=== PATIENT | male | born 1980 | race Caucasian/White ===

== ENCOUNTER 2019-07-13 08:06 | Outpatient (RCR) | payer OTHER, SELFPAY ==
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
--- NOTE | 2019-07-22 11:18 | PCPTNOTE ---
Patient called & cancelled scheduled appointment this date due to illness.[ ]
--- NOTE | 2019-07-24 08:25 | PCPTNOTE ---
Patient called & cancelled scheduled appointment this date due to illness.[ ]
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
--- NOTE | 2019-08-10 15:23 | PCPTNOTE ---
PHYSICAL THERAPY DISCHARGE NOTE Admitting Provider: Attending Provider: PHYSICIAN NOT ON STAFF Patient:Gómez Minaya Date of :1980 Terrance has not returned for any further treatments since 07/13/2019 which was his initial evaluation. He then cancelled his next 2 appointments and has not called to schedule any further appointments, therefore he will be discharged from physical therapy at this time. Thank you for referring Terrance [facility]. Please review, sign, date and return this discharge summary JARED. I have been updated about Terrance's current status and I agree with discharge from the above service at this time. Referring Physician Date
== END 2019-10-11 23:59 | disposition home or self-care (01) ==
LOC: ANHHIPT 08:06
PROVIDERS: PCP Internal Medicine
DX: M54.2 Cervicalgia (principal); M54.6 Pain in thoracic spine
CPT/HCPCS: 97161

== ENCOUNTER 2019-11-13 12:44 | Emergency (ER) | payer OTHER, SELFPAY ==
[2019-11-13] VITALS (7 sets, daily range): BP systolic 103–125; BP diastolic 54–90; PULSE 64–86; RESP 10–29; TEMP 36.6–36.7; O2SAT 98–100
[2019-11-13] MEDS: FAMOTIDINE 20 MG/2 ML VIAL IV PUSH (13:20)
[2019-11-13 13:33] LABS: Basophils Percent Auto 0.4 % (0.2-1.2); Eosinophils Percent Auto 0.5 % (0-4.4); Hematocrit 39.2 % (42.0-52.0); Hemoglobin 14.4 g/dL (14.0-18.0); Immature Granulocyte Absolute 0.02 K/mm3 (0.00-0.031); Immature Granulocyte Percent A 0.2 % (0-0.5); Lymphocytes Absolute Auto 1.37 K/mm3 (0.9-3.2); Lymphocytes Percent Auto 16.8 % (18.3-44.2); Mean Corpuscular HGB Conc 36.7 g/dl (32-36); Mean Corpuscular Hemoglobin 31.2 pg (26-34); Mean Corpuscular Volume 84.8 fl (80-100); Mean Platelet Volume 8.8 fl (7.4-10.4); Monocytes Absolute Auto 0.5 K/mm3 (0.1-0.6); Monocytes Percent Auto 6.1 % (2.6-8.5); Neutrophils Absolute Auto 6.2 K/mm3 (1.3-6.7); Platelet Count Result 185 k/mm3 (150-375); Red Blood Count 4.62 M/mm3 (4.6-6.20); Red Cell Distribution Width 12.4 % (11.5-14.5); White Blood Count 8.2 K/mm3 (4.5-10.0)
[2019-11-13] MEDS: LORAZEPAM INJ 2 MG/ML VIAL 1 MG IV PUSH (13:37)
--- NOTE | 2019-11-13 13:37 | PC.NURSE ---
Patient given urinal and has call light. He is instructed to call staff when he has to urinate. He is instructed that he is a fall risk and not to get up or out of bed without nursing staff assistance.
[2019-11-13 13:46] LABS: Alanine Aminotransferase 26 U/L (4-50); Albumin Level 4.8 g/dL (3.5-5.1); Alkaline Phosphatase 56 U/L (38-126); Aspartate Amino Transferase 35 U/L (17-59); Bilirubin,Total 0.6 mg/dL (0.2-1.3); Blood Urea Nitrogen 9 mg/dL (9-20); Calcium 9.6 mg/dL (8.4-10.2); Carbon Dioxide 24 mmol/L (22-30); Chloride 94 mmol/L (98-107); Estimated CRCL calculation 143 ml/min; Estimated Glomerular Filt Rate > 60; Glucose 135 mg/dL (75-110); Potassium 4.2 mmol/L (3.4-5.0); Sodium 129 mmol/L (137-145)
[2019-11-13 13:57] LABS: Lipase < 10 U/L (23-300)
[2019-11-13 14:39] LABS: Add Urine Microscopic? YES; Appearance Urine Clear (Clear); Bacteria Urine Trace /hpf; Bilirubin Urine Negative (Negative); Blood Urine Negative (Negative); Color Urine Yellow (Yellow); Glucose Urine UA Negative (Negative); Ketones Urine Trace mg/dL (Negative); Leukocyte Esterase Ur Negative LEU/UL (Negative); Mucus Urine Rare /lpf; Nitrate Urine Negative (Negative); Protein Urine Negative (Negative); RBC Urine 0-2 /hpf (0-2); Specific Grav Ur 1.011 (1.001-1.035); Urobilinogen Urine Negative mg/dL (<2.0); WBC Urine 0-3 /hpf
--- NOTE | 2019-11-13 14:40 | ED.GENADULT ---
HPI - General Adult General Chief complaint: Unspecified Stated complaint: etoh withdrawal Time Seen by Provider: 11/13/19 12:48 Source: patient Mode of arrival: ambulatory Limitations: no limitations History of Present Illness HPI narrative: Patient is a 39-year-old male who presents to emergency department for evaluation of feeling like he is going through withdrawal patient drank last night patient had 2 bottles of wine yesterday was incarcerated overnight due to disorderly conduct. Patient was released came to the emergency department notes feeling anxious but denies other complaints denies any injury or trauma patient notes that he would like to seek treatment but has continued to consume alcohol. Patient also notes marijuana use. On arrival patient in no pain resting comfortably in the room Related Data Home Medications Medication Instructions Recorded Confirmed clonazepam 11/13/19 dextroamphetamine-amphetamine 11/13/19 escitalopram oxalate mg 11/13/19 halobetasol propionate TOPICAL 11/13/19 lidocaine 11/13/19 trazodone 11/13/19 Allergies Allergy/AdvReac Type Severity Reaction Status Date / Time antipsychotics AdvReac Other Uncoded 11/13/19 13:30 Review of Systems Review of Systems: All systems reviewed & are unremarkable except as noted in HPI and below PMFSH Past Medical History Medical History (Updated 11/13/19 @ 14:48 by Natanael Zavaleta PA-C) Anxiety Social History Social History (Updated 11/13/19 @ 14:44 by Natanael Zavaleta PA-C) Smoking status: Current every day smoker Alcohol intake: current Gender identity (if verbalized by the patient): Male Exam Narrative: Exam Narrative: GENERAL: Well-appearing, well-nourished, and in no acute distress. HEAD: Normocephalic, atraumatic. EYES: PERRLA and EOMI. ENT: Nares clear, no rhinorrhea or epistaxis. Mucous membranes moist. CHEST: Clear to auscultation. No respiratory distress. No wheezes rales or rhonchi HEART: Regular rate and rhythm. No murmur heard. Normal peripheral pulses. ABDOMEN: Soft, nontender, nondistended EXTREMITIES: Normal range of motion. No edema. SKIN: Warm, dry, no rash. NEURO: No focal deficits. Alert and oriented x3. Cranial nerves II through XII grossly intact. Normal speech and gait PSYCH: Normal mood and affect. Course Course Emergency Course: Patient in the room at this time in no distress was hydrated given a banana bag resting comfortably will be discharged home provided with a a referral advised to find help through primary care as well patient agreeing to do so hemodynamically stable provided with reasons to return Vital Signs Vital signs: Vital Signs Temperature 98.0 F 11/13/19 12:58 Pulse Rate 71 11/13/19 12:58 Respiratory Rate 10 L 11/13/19 12:58 Blood Pressure 125/90 11/13/19 12:58 Pulse Oximetry 98 11/13/19 12:58 Temperature 98.0 F 11/13/19 12:58 Pulse Rate 78 11/13/19 13:43 Respiratory Rate 12 11/13/19 13:43 Blood Pressure 125/90 11/13/19 12:58 Pulse Oximetry 98 11/13/19 12:58 Medical Decision Making MDM Narrative Medical decision making narrative: Patient in the room in no distress was hydrated given medications in the emergency department no high risk changes in the blood work or imaging afebrile nontoxic-appearing no distress felt appropriate for outpatient reevaluation mother will help find placement. Patient at this time in the room in no distress. Patient with normal gait no high risk changes in the blood work or imaging hemodynamically stable Vital Signs Vital Signs: Vital Signs Temperature 98.0 F 11/13/19 12:58 Pulse Rate 71 11/13/19 12:58 Respiratory Rate 10 L 11/13/19 12:58 Blood Pressure 125/90 11/13/19 12:58 Pulse Oximetry 98 11/13/19 12:58 Temperature 98.0 F 11/13/19 12:58 Pulse Rate 78 11/13/19 13:43 Respiratory Rate 12 11/13/19 13:43 Blood Pressure 125/90 11/13/19 12:58 Pulse Oximetry 98 06
== END 2019-11-13 16:48 | disposition home or self-care (01) ==
PROVIDERS: Emergency Medicine Emergency Medical Services; Emergency Provider Emergency Medicine; PCP Family Medicine
DX: F41.9 Anxiety disorder, unspecified (principal); F10.10 Alcohol abuse, uncomplicated; F17.200 Nicotine dependence, unspecified, uncomplicated; Y90.9 Presence of alcohol in blood, level not specified
CPT/HCPCS: 36415; 80053; 81001; 83690; 85025; 96365; 96375; 99284; J2060; J3411; J3475; J7120

== ENCOUNTER 2019-11-27 18:53 | Emergency (ER) | payer OTHER, SELFPAY ==
[2019-11-27] VITALS (17 sets, daily range): BP systolic 119–139; BP diastolic 72–113; PULSE 69–106; RESP 12–18; TEMP 36.9; O2SAT 97–100
[2019-11-27 19:29] LABS: Basophils Percent Auto 0.3 % (0.2-1.2); Eosinophils Absolute Auto 0.2 K/mm3 (0-0.3); Eosinophils Percent Auto 2.3 % (0-4.4); Hematocrit 41.7 % (42.0-52.0); Hemoglobin 15.4 g/dL (14.0-18.0); Immature Granulocyte Absolute 0.03 K/mm3 (0.00-0.031); Immature Granulocyte Percent A 0.4 % (0-0.5); Lymphocytes Absolute Auto 4.06 K/mm3 (0.9-3.2); Lymphocytes Percent Auto 52.5 % (18.3-44.2); Mean Corpuscular HGB Conc 36.9 g/dl (32-36); Mean Corpuscular Hemoglobin 31.3 pg (26-34); Mean Corpuscular Volume 84.8 fl (80-100); Mean Platelet Volume 8.2 fl (7.4-10.4); Monocytes Absolute Auto 0.3 K/mm3 (0.1-0.6); Monocytes Percent Auto 4.1 % (2.6-8.5); Neutrophils Absolute Auto 3.1 K/mm3 (1.3-6.7); Neutrophils Percent Auto 40.4 % (45.5-73.1); Platelet Count Result 209 k/mm3 (150-375); Red Blood Count 4.92 M/mm3 (4.6-6.20); Red Cell Distribution Width 12.7 % (11.5-14.5); White Blood Count 7.7 K/mm3 (4.5-10.0)
[2019-11-27 19:35] LABS: Alanine Aminotransferase 32 U/L (4-50); Albumin Level 5.1 g/dL (3.5-5.1); Alkaline Phosphatase 66 U/L (38-126); Aspartate Amino Transferase 59 U/L (17-59); Bilirubin,Total 0.4 mg/dL (0.2-1.3); Blood Urea Nitrogen 4 mg/dL (9-20); Calcium 9.7 mg/dL (8.4-10.2); Carbon Dioxide 28 mmol/L (22-30); Chloride 100 mmol/L (98-107); Estimated CRCL calculation 108 ml/min; Estimated Glomerular Filt Rate > 60; Glucose 147 mg/dL (75-110); Potassium 4.7 mmol/L (3.4-5.0); Sodium 139 mmol/L (137-145)
[2019-11-27 19:36] LABS: Ethanol 260 mg/dL (<10)
[2019-11-27 19:44] LABS: Add Urine Microscopic? NO; Appearance Urine Clear (Clear); Bilirubin Urine Negative (Negative); Blood Urine Negative (Negative); Color Urine Colorless (Yellow); Glucose Urine UA Negative (Negative); Ketones Urine Negative (Negative); Leukocyte Esterase Ur Negative LEU/UL (Negative); Nitrate Urine Negative (Negative); Protein Urine Negative (Negative); Specific Grav Ur 1.005 (1.001-1.035); Urobilinogen Urine Negative mg/dL (<2.0)
--- NOTE | 2019-11-27 19:46 | ED.ALCOHOL ---
HPI - Alcohol General Chief Complaint: Alcohol Stated Complaint: eTOH/si Time Seen by Provider: 11/27/19 19:29 Source: patient Mode of arrival: EMS Limitations: no limitations History of Present Illness HPI narrative: This patient is a 39 year old male with history of alcohol abuse who presents for alcohol detox. Patient states he drank 6 bottles of beer prior to arrival. He states I have come to get help because I do not want to drink alcohol. He denies being suicidal or homicidal. Chronic alcohol use: Yes Previous visits for alcohol intoxication: Yes Related Data Home Medications Medication Instructions Recorded Confirmed clonazepam 11/13/19 dextroamphetamine-amphetamine 11/13/19 escitalopram oxalate mg 11/13/19 halobetasol propionate TOPICAL 11/13/19 lidocaine 11/13/19 trazodone 11/13/19 Allergies Allergy/AdvReac Type Severity Reaction Status Date / Time antipsychotics AdvReac Other Uncoded 11/27/19 19:11 Review of Systems Review of Systems: All systems reviewed & are unremarkable except as noted in HPI and below Constitutional: Constitutional: Denies chills, Denies fever(s) and Denies weakness Cardiovascular: Cardiovascular: Denies chest pain Respiratory: Respiratory: Denies cough, Denies dyspnea and Denies wheezing Gastrointestinal: Gastrointestinal: Denies abdominal pain, Denies nausea and Denies vomiting Neurologic: Denies focal weakness PMFSH Past Medical History Medical History (Updated 11/28/19 @ 03:35 by Maye Reyez MD) Anxiety Social History Social History (Updated 11/13/19 @ 14:44 by Natanael Zavaleta PA-C) Smoking status: Current every day smoker Alcohol intake: current Gender identity (if verbalized by the patient): Male Exam Narrative: Exam Narrative: GENERAL: Well-appearing, well-nourished, and in no acute distress. mild slurred speech HEAD: Normocephalic, atraumatic EYES: PERRLA and EOMI, conjunctiva clear without discharge EARS: TM's clear bilaterally without erythema or dullness NOSE: Nares clear, no rhinorrhea or epistaxis THROAT:Mucous membranes moist, Oropharynx normal without erythema, exudate, peritonsillar swelling or fluctuance NECK: Supple, without lymphadenopathy or mass RESPIRATORY: No respiratory distress, Airway patent, Respirations non-labored, Clear to auscultation without rales, rhonchi or wheeze HEART: Regular rate and rhythm. No murmur heard. Normal peripheral pulses. ABDOMEN: Soft, nontender, nondistended, normal active bowel sounds. No masses. No rebound or guarding, No organomegaly. EXTREMITIES: No edema, normal strength with full range of motion. SKIN: Warm, dry, normal color without rash NEURO: Alert and oriented x3. CN 2-12 grossly intact. No focal deficits. PSYCH: Normal mood and affect. Course Reevaluation(s) Reevaluation #1: Patient is walking around the room. He does not appear tremulous and appear to be going through withdrawal. He does reports anxiety. He is not suicidal. He states he takes clonazepam at home but he has been out of it for 2 weeks. His alcohol was 114 2 two hours ago so it is likely below 80. He is clinically sober as well. He will be discharged Date: 11/28/19 Time: 03:34 Vital Signs Vital signs: Vital Signs Temperature 98.5 F 11/27/19 19:00 Pulse Rate 106 H 11/27/19 19:00 Respiratory Rate 18 11/27/19 19:00 Blood Pressure 139/113 H 11/27/19 19:00 Pulse Oximetry 98 11/27/19 19:00 Temperature 98.1 F 11/28/19 02:30 Pulse Rate 86 11/28/19 03:50 Respiratory Rate 18 11/28/19 03:50 Blood Pressure 136/98 H 11/28/19 01:45 Pulse Oximetry 99 11/28/19 03:50 MDM - Alcohol Lab Data Attestation: I reviewed the patient's lab results. Result diagrams: 11/27/19 19:14 11/27/19 19:14 Labs: Lab Results 11/27/19 11/27/19 11/27/19 Range/Units 19:14 19:14 19:14 WBC 7.7 (4.5-10.0) K/mm3 RBC 4.92 (4.6-6.20) M/m
--- NOTE | 2019-11-27 19:52 | PC.NURSE ---
Per pt. okay to tell his mother he is here; called number, left message.
[2019-11-27 19:56] LABS: Amphetamine Screen Urine Negative (Negative); Barbiturate Screen Urine Negative (Negative); Benzodiazepines Screen Urine Positive (Negative); Cannabinoid Screen Urine Positive (Negative); Cocaine Screen Urine Negative (Negative); Methadone Screen Urine Negative (Negative); Opiate Screen Urine Negative (Negative); Phencyclidine Screen Urine Negative (Negative)
[2019-11-27 20:06] LABS: Thyroid Stimulating Hormone 0.645 uIU/mL (0.465-4.680)
--- NOTE | 2019-11-27 20:17 | PC.NURSE ---
Contacted pharmacy in regards to patients IV fluids. She stated she will send it up shortly.
[2019-11-28] VITALS (12 sets, daily range): BP systolic 112–136; BP diastolic 77–98; PULSE 79–95; RESP 12–20; TEMP 36.6–36.7; O2SAT 97–100
[2019-11-28] MEDS: LORAZEPAM 1 MG TABLET PO (01:05)
[2019-11-28 01:58] LABS: Ethanol 114 mg/dL (<10)
--- NOTE | 2019-11-28 02:15 | PC.NURSE ---
Pt on phone with mother to come pcik him up. Mother does not answer. pt states I can just stay here as long as I want. I will stay here as long as I want. I plan on using up all of these resources as long as I want.
--- NOTE | 2019-11-28 02:59 | PC.NURSE ---
Patient talking nonstop to sitter at bedside. Patient a/ox3, talking about multiple different subjects and topics, patient frequently requesting more ativan, stating I take more than that at home. That's not going to do anything, I'm going to need more.
== END 2019-11-28 03:55 | disposition home or self-care (01) ==
PROVIDERS: Emergency Provider General Practice
DX: F10.129 Alcohol abuse with intoxication, unspecified (principal); F41.9 Anxiety disorder, unspecified; F17.200 Nicotine dependence, unspecified, uncomplicated; Y90.8 Blood alcohol level of 240 mg/100 ml or more
CPT/HCPCS: 36415; 80053; 80307; 81003; 84443; 85025; 96365; 96366; 99284; A9270; J3411; J3475; J7121

== ENCOUNTER 2019-12-05 19:26 | Emergency (ER) | payer OTHER, SELFPAY ==
--- NOTE | ~2019-12-05 | XR_ITS ---
EXAMINATION: XR chest 2V DATE: 12/05/2019 20:25 INDICATION: Chest pain and a tiny TECHNIQUE: PA and lateral views of the chest are obtained. COMPARISON: 08/01/2016 FINDINGS: The lungs are free of acute opacities. There is no pleural effusion or pneumothorax. The ca rdiomediastinal silhouette is normal. The visualized bones and soft tissues are unremarkable. IMPRESSION: 1. No acute cardiopulmonary abnormality. Reviewed, dictated and finalized at location A.
[2019-12-05 19:24] VITALS: BP 155/111; PULSE 78; RESP 16; TEMP 36.3; O2SAT 98
--- NOTE | 2019-12-05 19:42 | ECG_ITS ---
Measurements Intervals [place] Rate: 65 P: 67 AK: 154 QRS: 31 QRSD: 88 T: 66 QT: 363 QTc: 378 Interpretive Statements SINUS RHYTHM NORMAL ECG Electronically Signed On 12-06-2019 7:51:48 CDT by Kevin Cartwright D.O.
--- NOTE | 2019-12-05 19:49 | ED.ALCOHOL ---
HPI - Alcohol General Chief Complaint: Alcohol Stated Complaint: ETOH withdrawl Time Seen by Provider: 12/05/19 19:44 Source: RN notes reviewed History of Present Illness HPI narrative: Patient presents to emergency department from home for alcohol withdrawal. Patient states that he has been drinking 16-24 beers a day. States that he is wanting to stop drinking presented to the emergency department for help with alcohol detox. Patient states his last drink was at 6 AM this morning. States he has been having some mild sweats but denies any fevers or chills nausea or vomiting. Patient states he has had some mild intermittent epigastric pain going into his lower mid chest is described as a burning today but denies any other symptoms Related Data Home Medications Medication Instructions Recorded Confirmed clonazepam 11/13/19 dextroamphetamine-amphetamine 11/13/19 escitalopram oxalate mg 11/13/19 halobetasol propionate TOPICAL 11/13/19 lidocaine 11/13/19 trazodone 11/13/19 Allergies Allergy/AdvReac Type Severity Reaction Status Date / Time antipsychotics AdvReac Other Uncoded 11/27/19 19:11 Review of Systems Review of Systems: Narrative: Gen.: Denies fevers or chills Eyes: Denies eye pain or visual change ENT: Denies congestion Respiratory: Denies shortness of breath or cough CV: Reports lower midsternal chest pain no palpitations GI: Denies abdominal pain nausea, emesis or diarrhea Musculoskeletal: Denies back pain or muscle pain Neuro: Denies numbness, tingling, weakness or focal weakness Skin: Denies rash Except as documented, all other systems reviewed and negative [facility] Past Medical History Medical History Anxiety Social History Social History Smoking status: Current every day smoker Alcohol intake: current Gender identity (if verbalized by the patient): Male Exam Narrative: Exam Narrative: APPEARANCE: No acute distress, nontoxic, resting in bed EYES: EOMI HEENT: Normocephalic, atraumatic, OMM RESPIRATORY: No respiratory distress Clear to auscultation bilaterally with no rhonchi wheezing or rales. CARDIOVASCULAR: Regular rate and rhythm without murmurs rubs or gallops. ABDOMINAL: Soft, nondistended, tender palpation epigastric region, no tenderness right upper quadrant, left upper quadrant, right lower quadrant left lower quadrant, no rebound or guarding MUSCULOSKELETAl: Moves all extremities. No clubbing, cyanosis or edema. NEURO: Awake and alert. Following commands, speech normal, no focal deficits SKIN:: Warm, dry. No rashes lesions or abrasions PSYCHIATRIC: Normal affect/mood, Course Course Emergency Course: States chest pain is resolved following GI cocktail Extensive discussion with patient regarding alcohol withdrawal. Patient states he has been in detox before states he is interested in detox again. The patient was given list of detox facilities. We discussed the use of Librium as an outpatient and patient has used it before and is in agreement with plan for discharge with follow-up with detox patient was also be given a PCP as an outpatient Discussed with patient results of workup and diagnosis. Discussed need for follow-up with primary care, proper use of medication, and reasons to return to the emergency department. Patient understands and agrees to current treatment plan Vital Signs Vital signs: Vital Signs Temperature 97.4 F L 12/05/19 19:24 Pulse Rate 78 12/05/19 19:24 Respiratory Rate 16 12/05/19 19:24 Blood Pressure 155/111 H 12/05/19 19:24 Pulse Oximetry 98 12/05/19 19:24 Temperature 97.4 F L 12/05/19 19:24 Pulse Rate 65 12/05/19 22:45 Respiratory Rate 16 12/05/19 22:45 Blood Pressure 138/96 H 12/05/19 22:45 Pulse Oximetry 100 12/05/19 22:45 MDM - Alcohol MDM Narrative Medical decision making narrative: Patient's EKGs an
[2019-12-05] MEDS: SODIUM CHLORIDE 0.9% IV 1,000 ML 999 ML IV CONT (19:53)
[2019-12-05 19:54] LABS: Basophils Percent Auto 0.3 % (0.2-1.2); Eosinophils Absolute Auto 0.1 K/mm3 (0-0.3); Hemoglobin 15.2 g/dL (14.0-18.0); Immature Granulocyte Absolute 0.04 K/mm3 (0.00-0.031); Immature Granulocyte Percent A 0.4 % (0-0.5); Lymphocytes Absolute Auto 2.96 K/mm3 (0.9-3.2); Lymphocytes Percent Auto 31.6 % (18.3-44.2); Mean Corpuscular HGB Conc 36.2 g/dl (32-36); Mean Corpuscular Hemoglobin 31.3 pg (26-34); Mean Corpuscular Volume 86.6 fl (80-100); Mean Platelet Volume 8.9 fl (7.4-10.4); Monocytes Absolute Auto 0.6 K/mm3 (0.1-0.6); Monocytes Percent Auto 6.6 % (2.6-8.5); Neutrophils Absolute Auto 5.6 K/mm3 (1.3-6.7); Neutrophils Percent Auto 60.1 % (45.5-73.1); Platelet Count Result 207 k/mm3 (150-375); Red Blood Count 4.85 M/mm3 (4.6-6.20); Red Cell Distribution Width 13.2 % (11.5-14.5); White Blood Count 9.4 K/mm3 (4.5-10.0)
[2019-12-05 19:57] VITALS: BP 138/98; PULSE 65; RESP 18; O2SAT 98
[2019-12-05 20:04] LABS: Partial Thromboplastin Time 22.4 SECONDS (22.3-36.8)
[2019-12-05 20:07] LABS: Ethanol < 10 mg/dL (<10)
[2019-12-05 20:08] LABS: Blood Urea Nitrogen 10 mg/dL (9-20); Calcium 9.6 mg/dL (8.4-10.2); Carbon Dioxide 25 mmol/L (22-30); Chloride 100 mmol/L (98-107); Estimated CRCL calculation 118 ml/min; Estimated Glomerular Filt Rate > 60; Glucose 158 mg/dL (75-110); Sodium 133 mmol/L (137-145)
[2019-12-05 20:10] LABS: Prothrombin Time 13.1 Seconds (11.1-14.7)
[2019-12-05 20:21] LABS: Troponin I < 0.012 ng/mL (0.000-0.034)
--- NOTE | 2019-12-05 20:37 | PC.NURSE ---
Patient asked again for urine, states he will try again soon.
[2019-12-05 21:08] LABS: Alanine Aminotransferase 34 U/L (4-50); Albumin Level 4.8 g/dL (3.5-5.1); Alkaline Phosphatase 76 U/L (38-126); Aspartate Amino Transferase 42 U/L (17-59); Bilirubin,Total 0.6 mg/dL (0.2-1.3)
[2019-12-05] MEDS: SODIUM CHLORIDE 0.9% IV 1,000 ML 999 ML (21:23)
[2019-12-05] MEDS: THIAMINE HCL 200 MG/2 ML VIAL 100 MG IV PUSH (21:23)
[2019-12-05 21:30] VITALS: BP 131/98; PULSE 66; RESP 14; O2SAT 99
[2019-12-05 21:49] LABS: Amphetamine Screen Urine Negative (Negative); Barbiturate Screen Urine Negative (Negative); Benzodiazepines Screen Urine Negative (Negative); Cannabinoid Screen Urine Positive (Negative); Cocaine Screen Urine Negative (Negative); Methadone Screen Urine Negative (Negative); Opiate Screen Urine Negative (Negative); Phencyclidine Screen Urine Negative (Negative)
[2019-12-05 22:45] VITALS: BP 138/96; PULSE 65; RESP 16; O2SAT 100
[2019-12-05 23:31] LABS: Troponin I < 0.012 ng/mL (0.000-0.034)
[2019-12-06 01:11] VITALS: BP 132/74; PULSE 77; RESP 18; O2SAT 98
== END 2019-12-06 01:18 | disposition home or self-care (01) ==
PROVIDERS: Emergency Provider Emergency Medicine
DX: F10.10 Alcohol abuse, uncomplicated (principal); Y90.0 Blood alcohol level of less than 20 mg/100 ml; F41.9 Anxiety disorder, unspecified
CPT/HCPCS: 36415; 51701; 71046; 80048; 80076; 80307; 84484; 85025; 85610; 85730; 93005; 96361; 96374; 99284; A9270; J3411; J7030

== ENCOUNTER 2020-02-20 16:20 | Emergency (ER) | payer OTHER, SELFPAY ==
[2020-02-20 16:36] VITALS: BP 108/73; PULSE 76; RESP 18; TEMP 36.7; O2SAT 97
[2020-02-20 17:30] LABS: Basophils Absolute Auto 0.1 K/mm3 (0.0-0.1); Basophils Percent Auto 0.6 % (0.2-1.2); Eosinophils Absolute Auto 0.2 K/mm3 (0-0.3); Eosinophils Percent Auto 2.7 % (0-4.4); Hematocrit 42.4 % (42.0-52.0); Hemoglobin 15.2 g/dL (14.0-18.0); Immature Granulocyte Absolute 0.03 K/mm3 (0.00-0.031); Immature Granulocyte Percent A 0.4 % (0-0.5); Lymphocytes Absolute Auto 3.85 K/mm3 (0.9-3.2); Lymphocytes Percent Auto 49.9 % (18.3-44.2); Mean Corpuscular HGB Conc 35.8 g/dl (32-36); Mean Corpuscular Hemoglobin 30.5 pg (26-34); Mean Corpuscular Volume 85.1 fl (80-100); Mean Platelet Volume 8.8 fl (7.4-10.4); Monocytes Absolute Auto 0.4 K/mm3 (0.1-0.6); Monocytes Percent Auto 5.4 % (2.6-8.5); Neutrophils Absolute Auto 3.2 K/mm3 (1.3-6.7); Platelet Count Result 203 k/mm3 (150-375); Red Blood Count 4.98 M/mm3 (4.6-6.20); Red Cell Distribution Width 11.9 % (11.5-14.5); White Blood Count 7.7 K/mm3 (4.5-10.0)
[2020-02-20 17:33] LABS: Add Urine Microscopic? YES; Appearance Urine Clear (Clear); Bilirubin Urine Negative (Negative); Blood Urine Negative (Negative); Color Urine Colorless (Yellow); Glucose Urine UA 3+ mg/dL (Negative); Ketones Urine Negative (Negative); Leukocyte Esterase Ur Negative LEU/UL (Negative); Nitrate Urine Negative (Negative); Protein Urine Negative (Negative); Specific Grav Ur 1.006 (1.001-1.035); Urobilinogen Urine Negative mg/dL (<2.0); WBC Urine 0-3 /hpf
[2020-02-20 17:42] LABS: Lipase 12 U/L (23-300)
[2020-02-20 17:43] LABS: Alanine Aminotransferase 94 U/L (4-50); Albumin Level 4.6 g/dL (3.5-5.1); Alkaline Phosphatase 73 U/L (38-126); Anion Gap 16 mmol/L (8-16); Aspartate Amino Transferase 34 U/L (17-59); Bilirubin,Total 0.2 mg/dL (0.2-1.3); Blood Urea Nitrogen 6 mg/dL (9-20); Calcium 8.9 mg/dL (8.4-10.2); Carbon Dioxide 19 mmol/L (22-30); Chloride 106 mmol/L (98-107); Estimated CRCL calculation 104 ml/min; Estimated Glomerular Filt Rate > 60; Glucose 299 mg/dL (75-110); Potassium 3.7 mmol/L (3.4-5.0); Sodium 141 mmol/L (137-145)
[2020-02-20 17:46] LABS: Ethanol 276 mg/dL (<10)
[2020-02-20 17:49] LABS: Amphetamine Screen Urine Negative (Negative); Barbiturate Screen Urine Negative (Negative); Benzodiazepines Screen Urine Negative (Negative); Cannabinoid Screen Urine Negative (Negative); Cocaine Screen Urine Negative (Negative); Methadone Screen Urine Negative (Negative); Opiate Screen Urine Negative (Negative); Phencyclidine Screen Urine Negative (Negative)
[2020-02-20 18:15] VITALS: BP 112/73; PULSE 88; RESP 18; O2SAT 99
[2020-02-20 18:24] VITALS: BP 115/75; PULSE 78; RESP 18; O2SAT 97
--- NOTE | 2020-02-20 18:24 | ED.ANXIETY ---
HPI - Anxiety General Chief Complaint: Anxiety Stated Complaint: anxiety Time Seen by Provider: 02/20/20 16:56 History of Present Illness HPI narrative: Patient is a 40-year-old male who presents the ER with reports of anxiety. Reports she has to drink alcohol to quell his anxiety. He would like antianxiety medication for home to take so he does not have to drink alcohol. No suicidal ideation or homicidal ideation. No additional drug use per him. Patient reports he is going to see a psychiatrist in April. Related Data Home Medications Medication Instructions Recorded Confirmed divalproex PO 02/20/20 escitalopram oxalate mg 02/20/20 hydroxyzine HCl 02/20/20 metformin mg 02/20/20 propranolol 02/20/20 Allergies Allergy/AdvReac Type Severity Reaction Status Date / Time antipsychotics AdvReac Other Uncoded 02/20/20 16:56 Review of Systems Review of Systems: All systems reviewed & are unremarkable except as noted in HPI and below Constitutional: Constitutional: Denies chills, Denies fever(s) and Denies weakness ENT: Denies nasal congestion and Denies sore throat Psychiatric: Psychiatric: Reports anxiety, Denies depression, Denies homicidal ideation and Denies suicidal ideation PMFSH Social History Social History Smoking status: Current every day smoker Alcohol intake: current Gender identity (if verbalized by the patient): Male Exam Narrative: Exam Narrative: GENERAL: Intoxicated-appearing, well-nourished, and in no acute distress. HEAD: Normocephalic, atraumatic. EYES: PERRL and EOMI. CHEST: Clear to auscultation. No respiratory distress. HEART: Regular rate and rhythm. Normal peripheral pulses. ABDOMEN: Soft, nontender, nondistended. EXTREMITIES: Normal range of motion. No edema. SKIN: Warm, dry, no rash. NEURO: Alert and oriented x3. PSYCH: Normal mood and affect. Course Vital Signs Vital signs: Vital Signs Temperature 98.0 F 02/20/20 16:36 Pulse Rate 76 02/20/20 16:36 Respiratory Rate 18 02/20/20 16:36 Blood Pressure 108/73 02/20/20 16:36 Pulse Oximetry 97 02/20/20 16:36 Temperature 98.0 F 02/20/20 16:36 Pulse Rate 78 02/20/20 18:24 Respiratory Rate 18 02/20/20 18:24 Blood Pressure 115/75 02/20/20 18:24 Pulse Oximetry 97 02/20/20 18:24 MDM - Anxiety Lab Data Result diagrams: 02/20/20 17:22 02/20/20 17:22 Labs: Lab Results 02/20/20 02/20/20 02/20/20 Range/Units 17:22 17:22 17:22 WBC 7.7 (4.5-10.0) K/mm3 RBC 4.98 (4.6-6.20) M/mm3 Hgb 15.2 (14.0-18.0) g/dL Hct 42.4 (42.0-52.0) % MCV 85.1 (80-100) fl MCH 30.5 (26-34) pg MCHC 35.8 (32-36) g/dl RDW 11.9 (11.5-14.5) % Plt Count 203 (150-375) k/mm3 MPV 8.8 (7.4-10.4) fl Immature Gran % (Auto) 0.4 (0-0.5) % Neut % (Auto) 41.0 L (45.5-73.1) % Lymph % (Auto) 49.9 H (18.3-44.2) % [place] % (Auto) 5.4 (2.6-8.5) % Eos % (Auto) 2.7 (0-4.4) % Baso % (Auto) 0.6 (0.2-1.2) % Lymph # (Auto) 3.85 H (0.9-3.2) K/mm3 [place] # (Auto) 0.4 (0.1-0.6) K/mm3 Eos # (Auto) 0.2 (0-0.3) K/mm3 Baso # (Auto) 0.1 (0.0-0.1) K/mm3 Abs Immat Gran (auto) 0.03 (0.00-0.031) K/mm3 Absolute Neuts (auto) 3.2 (1.3-6.7) K/mm3 Absolute Nucleated RBC 0.0 (0.0-0.012) K/mm3 Nucleated RBC % 0.0 (0.0-0.2) % Sodium 141 (137-145) mmol/L Potassium 3.7 (3.4-5.0) mmol/L Chloride 106 (98-107) mmol/L Carbon Dioxide 19 L (22-30) mmol/L Anion Gap 16 (8-16) mmol/L BUN 6 L (9-20) mg/dL Creatinine 0.80 (0.7-1.3) mg/dL Estim Creat Clear Calc 104 ml/min Estimated GFR > 60 (59 - ) Glucose 299 H (75-110) mg/dL Calcium 8.9 (8.4-10.2) mg/dL Total Bilirubin 0.2 (0.2-1.3) mg/dL AST 34 (17-59) U/L ALT 94 H (4-50) U/L Alkaline Phosphatase 73 (38-126) U/L Total Protein 7.0
== END 2020-02-20 19:12 | disposition home or self-care (01) ==
PROVIDERS: Emergency Provider Emergency Medicine; PCP Family Medicine
DX: F10.129 Alcohol abuse with intoxication, unspecified (principal); Y90.8 Blood alcohol level of 240 mg/100 ml or more; F41.9 Anxiety disorder, unspecified; F17.200 Nicotine dependence, unspecified, uncomplicated
CPT/HCPCS: 36415; 80053; 80307; 81001; 83690; 84443; 85025; 99283

== ENCOUNTER 2021-09-17 10:53 | Emergency (ER) | payer OTHER, SELFPAY ==
[2021-09-17] VITALS (8 sets, daily range): BP systolic 111–135; BP diastolic 71–98; PULSE 71–72; RESP 14–16; TEMP 36.2; O2SAT 94–97
--- NOTE | 2021-09-17 11:28 | ED.ALCOHOL ---
HPI - Alcohol General Chief Complaint: Alcohol Stated Complaint: +ETOH Time Seen by Provider: 09/17/21 11:17 Source: patient History of Present Illness HPI narrative: Patient presents with alcohol intoxication wanting detox. Patient reports longstanding history of alcohol abuse and prior attempts detox he also worked prior withdrawals. He reports he has been drinking very heavily over the past month approximately 1 to 2 pints of hard liquor a day. Today he was unresponsive to his mom she called EMS and was transferred to the ER for evaluation. Patient ports chronic back pain as otherwise no acute complaints. Patient does have a history of diabetes and has been monitoring his blood sugars has not noted any significant change from his baseline over the past few days. Denies any suicidal or homicidal ideation. Related Data Home Medications Medication Instructions Recorded Confirmed divalproex PO 02/20/20 escitalopram oxalate mg 02/20/20 hydroxyzine HCl 02/20/20 metformin mg 02/20/20 propranolol 02/20/20 Allergies Allergy/AdvReac Type Severity Reaction Status Date / Time antipsychotics AdvReac Other Uncoded 02/20/20 16:56 Review of Systems Review of Systems: CONSTITUTIONAL: Denies fever, chills, or sweats. EYES: Denies visual changes, redness, or discharge. ENT: Denies rhinorrhea, congestion, sore throat, or otalgia. CARDIOVASCULAR: Denies chest pain, palpitations, or edema. RESPIRATORY: Denies cough or dyspnea. GASTROINTESTINAL: Denies abdominal pain, nausea, vomiting, or diarrhea. GENITOURINARY: Denies dysuria or hematuria. SKIN: Denies rash or itching. MUSCULOSKELETAL: Denies joint pain, or myalgia. NEUROLOGIC: Denies headache, numbness, dizziness, or weakness. PSYCHIATRIC: Denies anxiety or depression. All systems reviewed & are unremarkable except as noted in HPI and below PMFSH Past Medical History Medical History Alcohol abuse (~09/17/21) Anxiety Social History Social History Smoking status: Current every day smoker Alcohol intake: current Gender identity (if verbalized by the patient): Male Exam Narrative: GENERAL: Well-appearing, well-nourished, and in no acute distress. HEAD: Normocephalic, atraumatic. EYES: PERRLA and EOMI. ENT: Nares clear, no rhinorrhea or epistaxis. Mucous membranes moist. NECK: Supple. No masses. No JVD CHEST: Clear to auscultation. No respiratory distress. No wheezes rales or rhonchi HEART: Regular rate and rhythm. No murmur heard. Normal peripheral pulses. ABDOMEN: Soft, nontender, nondistended, normal active bowel sounds. EXTREMITIES: Normal range of motion. No edema. SKIN: Warm, dry, no rash. NEURO: No focal deficits. Alert and oriented x3. PSYCH: Normal mood and affect. Course Reevaluation(s) Reevaluation #1: Care coordination is assisting with inpatient versus outpatient detox support. Date: 09/17/21 Time: 17:56 Reevaluation #2: Results reviewed with patient patient is comfortable outpatient plan. Attempted multiple facilities for inpatient detox however there is no availability patient given multiple outpatient resources. Patient also given resources for homeless detention as it is family does not want him to return home Date: 09/17/21 Time: 18:32 Vital Signs Vital signs: Vital Signs Temperature 36.2 C L 09/17/21 11:27 Pulse Rate 72 09/17/21 11:27 Respiratory Rate 14 09/17/21 11:27 Blood Pressure 127/83 09/17/21 11:27 Pulse Oximetry 96 09/17/21 11:27 Temperature 36.2 C L 09/17/21 11:27 Pulse Rate 71 09/17/21 18:54 Respiratory Rate 16 09/17/21 18:54 Blood Pressure 128/98 H 09/17/21 18:42 Pulse Oximetry 97 09/17/21 18:42 MDM - Alcohol MDM Narrative Medical decision making narrative: H&P as above, vss, pt looks clinically well, exam reassuring, labs with leukocytosis otherwise clinically unremarkable,
[2021-09-17 11:42] LABS: Basophils Percent Auto 0.2 % (0.2-1.2); Eosinophils Absolute Auto 0.1 K/mm3 (0-0.3); Eosinophils Percent Auto 0.4 % (0-4.4); Hematocrit 45.5 % (42.0-52.0); Hemoglobin 15.9 g/dL (14.0-18.0); Immature Granulocyte Absolute 0.01 K/mm3 (0.00-0.031); Immature Granulocyte Percent A 0.1 % (0-0.5); Lymphocytes Absolute Auto 13.87 K/mm3 (0.9-3.2); Mean Corpuscular HGB Conc 34.9 g/dl (32-36); Mean Corpuscular Hemoglobin 29.5 pg (26-34); Mean Corpuscular Volume 84.4 fl (80-100); Mean Platelet Volume 8.8 fl (7.4-10.4); Monocytes Absolute Auto 0.3 K/mm3 (0.1-0.6); Monocytes Percent Auto 1.7 % (2.6-8.5); Neutrophils Absolute Auto 2.1 K/mm3 (1.3-6.7); Neutrophils Percent Auto 12.6 % (45.5-73.1); Platelet Count Result 78 k/mm3 (150-375); Red Blood Count 5.39 M/mm3 (4.6-6.20); Red Cell Distribution Width 15.8 % (11.5-14.5); White Blood Count 16.3 K/mm3 (4.5-10.0)
[2021-09-17 11:52] LABS: Alanine Aminotransferase 26 U/L (4-50); Albumin Level 4.7 g/dL (3.5-5.1); Alkaline Phosphatase 80 U/L (38-126); Anion Gap 12 mmol/L (8-16); Aspartate Amino Transferase 54 U/L (17-59); Bilirubin,Total 0.5 mg/dL (0.2-1.3); Blood Urea Nitrogen 16 mg/dL (9-20); Calcium 8.5 mg/dL (8.4-10.2); Carbon Dioxide 28 mmol/L (22-30); Chloride 104 mmol/L (98-107); Estimated CRCL calculation 128 ml/min; Estimated Glomerular Filt Rate > 60; Glucose 172 mg/dL (65-110); Potassium 4.1 mmol/L (3.4-5.0); Sodium 144 mmol/L (137-145)
[2021-09-17 12:02] LABS: Atypical Lymphocytes Present
[2021-09-17 12:14] LABS: Acetaminophen < 10 ug/mL (10-30); Salicylate < 1.0 mg/dL (2-20)
[2021-09-17 12:15] LABS: Ethanol 374 mg/dL (<10)
[2021-09-17 12:37] LABS: Platelet Estimate Decreased (Adequate)
[2021-09-17] MEDS: LORazepam INJ (*CRX) 2 MG/ML VIAL 1 MG IV PUSH ×3 (13:30→18:07)
[2021-09-17] MEDS: THIAMINE HCL INJ 100 MG, FOLIC ACID INJ 1 MG, MULTIVITAMINS-12 INJ VIAL 1 5 ML, MULTIVI... IV CONT (13:31)
[2021-09-17 13:32] LABS: Add Urine Microscopic? YES; Appearance Urine Clear (Clear); Bilirubin Urine Negative (Negative); Blood Urine 1+ (Negative); Color Urine Yellow (Yellow); Glucose Urine UA 1+ mg/dL (Negative); Ketones Urine Negative (Negative); Leukocyte Esterase Ur Negative LEU/UL (Negative); Nitrate Urine Negative (Negative); Protein Urine 2+ mg/dL (Negative); Specific Grav Ur 1.011 (1.001-1.035); Urobilinogen Urine Negative mg/dL (<2.0); WBC Urine 0-3 /hpf
[2021-09-17 14:30] LABS: Amphetamine Screen Urine Negative (Negative); Barbiturate Screen Urine Negative (Negative); Benzodiazepines Screen Urine Positive (Negative); Cannabinoid Screen Urine Positive (Negative); Cocaine Screen Urine Negative (Negative); Methadone Screen Urine Negative (Negative); Opiate Screen Urine Negative (Negative); Phencyclidine Screen Urine Negative (Negative)
[2021-09-17 18:15] LABS: Ethanol 207 mg/dL (<10)
--- NOTE | 2021-09-17 18:16 | PC.NURSE ---
Patient sitting up eating dinner at his bedside.
--- NOTE | 2021-09-17 18:42 | PCCCNOTE ---
Late entry: Called to ED at 1610 to meet with patient for inpatient alcohol detox/rehab. Met with patient, he confirms that he wants alcohol detox rehab, he was in rehab about 6-7 weeks ago but not sure of what facility. He has been at [facility] and [facility] before, Agreeable for care coordination to make some calls. Called to [facility], they do not have any Medicaid beds available, intake spoke with patient and put him on a waitlist, they gave him a phone number to call daily for a bed. Fax'd referral to [facility] as requested [phone]. Called to [facility] advised to leave a vm with intake team at [phone] and have patient call tomorrow. Called to [facility] advised to have patient call in AM for intake which opens at 0800. Called to [facility] [phone], and left a vm message. Called to [facility] [phone], they are full for detox beds today but advised to have patient call tomorrow. Left a vm message with [facility] [phone]. No answer at [facility] [phone]. Called to [facility] at [phone], advised for career development counselor to fax referral to [phone] and intake will review and will call the patient tomorrow. Fax'd successfully as requested. Called to [facility] at [phone], they do not take [place]. Called to [facility], left a message. Called to [facility] at [facility], no beds for detox patient to call daily. Updated ER Provider, Dr. Chaparro. Provided patient with resources sheet with phone numbers and resources with instructions for who to call for follow up. Per ER provider and charge histotechnologist, patient's mother called and he will not be allowed back there. Discussed this with patient, he does not have any other options, provided resource with [facility] with walk in must be at longterm between 7pm-9pm for overnight. Patient will need medication, Dr Chaparro spoke with [facility] 24 hour pharmacy on [address], Cab voucher provided for patient to go to [facility] and then to [facility]. Voucher given to bedside RN
== END 2021-09-17 18:56 | disposition home or self-care (01) ==
PROVIDERS: Emergency Provider Emergency Medicine; PCP Family Medicine
DX: F10.10 Alcohol abuse, uncomplicated (principal); Y90.8 Blood alcohol level of 240 mg/100 ml or more; E11.9 Type 2 diabetes mellitus without complications; Z79.84 Long term (current) use of oral hypoglycemic drugs; F41.9 Anxiety disorder, unspecified
CPT/HCPCS: 36415; 80053; 80307; 81001; 85025; 96365; 96366; 96375; 96376; 99284; J2060; J3411; J3475; J7120